=== PATIENT | male | born 1935 | race Caucasian/White ===

== ENCOUNTER → 2018-08-17 | Day surgery (SDC) | payer MEDICARE, OTHER ==
[2018-08-15 11:44] LABS: BASOPHILS # (AUTO) 0.1 (0.0-0.1); EOSINOPHILS # (AUTO) 0.1 (0.0-0.4); EOSINOPHILS % 2.3 % (0.0-6.0); HEMATOCRIT 35.8 % (38.2-49.6); HEMOGLOBIN 12.5 g/dL (14.0-18.0); LYMPHOCYTES # (AUTO) 1.3 (1.0-3.2); LYMPHOCYTES % 24.3 % (18.0-39.1); MEAN CORPUSCULAR HEMOGLOBIN 30.7 pg (28-32); MEAN CORPUSCULAR HGB CONC 34.9 g/dL (31-35); MONOCYTES # (AUTO) 0.6 (0.2-0.8); MONOCYTES % 11.8 % (4.4-11.3); NEUTROPHILS # (AUTO) 3.1 (2.1-6.9); NEUTROPHILS % 60.4 % (38.7-80.0); PLATELET COUNT 186 x10e3/uL (140-360); RED BLOOD COUNT 4.07 x10e6/uL (4.3-5.7); RED CELL DISTRIBUTION WIDTH 11.7 % (11.7-14.4)
[2018-08-15 12:14] LABS: ANION GAP 14.9 mmol/L (8-16); BLOOD UREA NITROGEN 18 mg/dL (7-26); BUN/CREATININE RATIO 19 (6-25); CALCIUM 9.2 mg/dL (8.4-10.2); CARBON DIOXIDE 25 mmol/L (22-29); CHLORIDE 104 mmol/L (98-107); CREATININE, SERUM 0.96 mg/dL (0.72-1.25); EST GLOMERULAR FILTRATION RATE > 60 ML/MIN (60-); GLUCOSE 105 mg/dL (74-118); POTASSIUM 3.9 mmol/L (3.5-5.1); SODIUM 140 mmol/L (136-145)
--- NOTE | 2018-08-16 09:38 | Diagnostic Imaging Report ---
EXAMINATION: PA and lateral views of the chest. COMPARISON: None CLINICAL HISTORY: Preadmission, prostate surgery DISCUSSION: Lines/tubes: None. Lungs: The lungs are well inflated and clear. No pneumonia or pulmonary edema. Pleura: No pleural effusion or pneumothorax. Heart and mediastinum: The cardiomediastinal silhouette is normal. Bones and soft tissues: No acute bony abnormalities. IMPRESSION: No acute cardiopulmonary abnormalities. Signed by: Dr. Johann Robles M.D. on 08/16/2018 9:34 AM
[~2018-08-17] MED LIST: ALFUZOSIN HCL10 MG PO; CARBAMAZEPINE200 MG PO; CEFTRIAXONE SOD 1 GM VIAL ONE; DEXAMETHASONE SOD PHOS INJ 4 MG/ML VIAL ONE; GENTAMICIN 80MG/NS 100 ML 200 ML IV ONE; HYDROCHLOROTHIA25 MG PO; IOPAMIDOL 610MG/1ML 300 MG/ML VIAL IV ONE; LIDOCAINE HCL 2% LOCAL INJ 5 ML SDV VIAL INJ ONE; LOSARTAN POTAS100 MG PO; PROPOFOL IV EMULSION 10 MG/ML 20 ML VIAL ONE; SEVOFLURANE INHAL SOLN 250 ML PEN BTL ONE; SIMVASTATIN20 MG PO
[2018-08-17 12:00] VITALS: BP 146/86
--- OUTSIDE RECORDS SUMMARY | 2018-08-29 10:25 | XMS REPORT ---
Author Author [facility] Address Unknown Phone Unavailable Care Team Providers Care Circuit Tester Name Role Phone MO RIOS Unavailable Unavailable Problems This patient has no known problems. Allergies, Adverse Reactions, Alerts This patient has no known allergies or adverse reactions. Medications This patient has no known medications. Results Test Description Test Time Test Comments Text Results Atomic Results Result Comments CHEST 2 VIEWS 2018-08-16 09:34:00 [place] [address] Patient Name: ARNOLDO BROOKE MR #: [id number] : 1935 Age/Sex: 83/M Req #: [id number] Adm Physician: Ordered by: MO RIOS MD Report #: [id number] Location: OR Room/Bed: Procedure: [id number] DX/CHEST 2 VIEWS Exam Date: 08/15/18 Exam Time: 1115 REPORT STATUS: Signed EXAMINATION: PA and lateral views of the chest. COMPARISON: None CLINICAL HISTORY: Preadmission, prostate surgery DISCUSSION: Lines/tubes: None. Lungs: The lungs are well inflated and clear. No pneumonia or pulmonary edema. Pleura: No pleural effusion or pneumothorax. Heart and mediastinum: The cardiomediastinal silhouette is normal. Bones and soft tissues: No acute bony abnormalities. IMPRESSION: No acute cardiopulmonary abnormalities. Signed by: Dr. Puneet Raymundo M.D. on 08/16/2018 9:34 AM Dictated By: PUNEET RAYMUNDO MD 3 Transcribed By: MOUNIKA on 08/16/18933 COPY TO: MO RIOS MD
--- NOTE | 2018-09-26 02:00 | Operative Report ---
DATE OF PROCEDURE: August 17, 2018 PREOPERATIVE DIAGNOSES: 1. Obstructive benign prostatic hypertrophy. 2. Incomplete bladder emptying. POSTOPERATIVE DIAGNOSES: 1. Obstructive benign prostatic hypertrophy. 2. Incomplete bladder emptying. OPERATIONS PERFORMED: 1. Cystourethroscopy with bilateral ureteral catheterization and retrograde ureteropyelography (separate procedure performed for the incomplete bladder emptying). 2. Interpretation of retrograde ureteropyelography. 3. Cystourethroscopy with implantation of 4 UroLift implants. ANESTHESIA: General. COMPLICATIONS: None. CLINICAL SUMMARY: Michoacano Meneses is an 83-year-old man with the above preoperative diagnoses. He is brought for the above procedures. The patient has had a previous negative prostate biopsy and he is brought for hopes of improving his urinary force of stream and lower tract symptomatology. He is aware of the risks of bleeding, infection, injury to adjacent structures, need for additional procedures, and elected to proceed. OPERATIVE PROCEDURE IN DETAIL: Informed consent was verified. Michoacano Meneses was properly identified, taken to the operating room, and placed on the cystoscopy table in supine position. Anesthesia was uneventfully begun. The patient was then carefully and gently repositioned in dorsal lithotomy position with all pressure points well padded. His genitalia were prepared and draped in usual sterile fashion. The 22.5-Scottish cystoscope sheath with the visual obturator in place was atraumatically inserted into patient's urethra. It was guided down the unremarkable urethra, through the normal sphincteric region, through the prostate bed, which was significant for mostly bipolar prostatic hypertrophy with an elevated median bar, but no median lobe. Panendoscopy of the urinary bladder revealed mild trabeculations, but no tumors, no stones, and no diverticula. Normally positioned and configured ureteral orifices were identified. An 8-Scottish catheter was used to cannulate each ureter, and retrograde ureteral pyelograms were performed. Interpretation of retrograde ureteropyelography: Contrast was instilled in retrograde fashion bilaterally. There were no tumors, no stones, and no diverticula. Unobstructed drainage was observed bilaterally fluoroscopically. There appeared to be medial deviation of the ureters midportion. This bladder was drained. The cystoscope was withdrawn. A 20-Scottish cystoscope sheath with the visual obturator in place was atraumatically inserted into the patient's urethra. It was guided down the unremarkable urethra and back into the patient's bladder. We implanted 4 UroLift implants, 2 were placed anterolaterally on either side 1.5 cm distal to the bladder neck and 2 were placed on either side anterolaterally at the level of the verumontanum. This resulted in a continuous anterior channel, which was unobstructed. The bladder was drained. The cystoscope was withdrawn. Digital rectal examination revealed a 40 g prostate, which was indurated at the right mid. The patient was then uneventfully reversed from anesthesia and taken to recovery room in stable condition. Explicit post instructions were given. Will follow the patient up in the office, at which point in time will perform uroflowmetry and bladder ultrasonography. Job#: [id number] cc:ZOEY SUBRAMANIAN MD
== END | disposition home or self-care (01) ==
LOC: OR 05:02
PROVIDERS: ATTEND Urology
DX: N40.1 Benign prostatic hyperplasia with lower urinary tract symptoms (principal); N13.8 Other obstructive and reflux uropathy; R39.11 Hesitancy of micturition; R39.12 Poor urinary stream; N32.89 Other specified disorders of bladder; N40.3 Nodular prostate with lower urinary tract symptoms; R35.1 Nocturia; R35.0 Frequency of micturition; R39.14 Feeling of incomplete bladder emptying; N43.3 Hydrocele, unspecified; K42.9 Umbilical hernia without obstruction or gangrene; R97.20 Elevated prostate specific antigen [PSA]; E66.01 Morbid (severe) obesity due to excess calories; E78.00 Pure hypercholesterolemia, unspecified; G50.0 Trigeminal neuralgia; I10 Essential (primary) hypertension; R00.1 Bradycardia, unspecified; E78.5 Hyperlipidemia, unspecified; Z01.810 Encounter for preprocedural cardiovascular examination; Z01.812 Encounter for preprocedural laboratory examination; Z01.818 Encounter for other preprocedural examination; Z86.11 Personal history of tuberculosis
CPT/HCPCS: 52005; C9740; 36415; 71046; 74420; 80048; 85025; 93005; J0696; J1100; J1580; J2001; L8699

== ENCOUNTER 2023-02-17 06:26 | Observation (INO) | payer MEDICARE, OTHER ==
[2023-02-10 12:06] LABS: BASOPHILS # (AUTO) 0.1 (0.0-0.1); BASOPHILS % 0.9 % (0.0-1.0); EOSINOPHILS # (AUTO) 0.2 (0.0-0.4); EOSINOPHILS % 2.2 % (0.0-6.0); HEMATOCRIT 37.2 % (38.2-49.6); LYMPHOCYTES # (AUTO) 1.2 (1.0-3.2); MEAN CORPUSCULAR HEMOGLOBIN 29.6 pg (28-32); MEAN CORPUSCULAR HGB CONC 32.3 g/dL (31-35); MEAN CORPUSCULAR VOLUME 91.9 fL (81-99); MONOCYTES # (AUTO) 0.6 (0.2-0.8); NEUTROPHILS # (AUTO) 4.9 (2.1-6.9); NEUTROPHILS % 70.6 % (38.7-80.0); PLATELET COUNT 264 x10e3/uL (140-360); RED BLOOD COUNT 4.05 x10e6/uL (4.3-5.7); RED CELL DISTRIBUTION WIDTH 12.7 % (11.7-14.4)
[2023-02-10 12:19] LABS: INR 0.91; PROTHROMBIN TIME 12.8 seconds (11.9-14.5)
[2023-02-10 12:20] LABS: PARTIAL THROMBOPLASTIN TIME 28.1 seconds (23.8-35.5)
[2023-02-10 12:27] LABS: ALBUMIN 3.7 g/dL (3.5-5.0); ALBUMIN/GLOBULIN RATIO 1.2 (0.8-2.0); ANION GAP 16.8 mmol/L (8-16); CREATININE, SERUM 0.86 mg/dL (0.72-1.25); POTASSIUM 3.8 mmol/L (3.5-5.1)
[~2023-02-17] VITALS: Ht 175.3 cm; Wt 90.7 kg
[~2023-02-17 06:26] MED LIST changes: -CEFTRIAXONE SOD 1 GM VIAL ONE; -DEXAMETHASONE SOD PHOS INJ 4 MG/ML VIAL ONE; +DIOVAN160 MG PO; -GENTAMICIN 80MG/NS 100 ML 200 ML IV ONE; -IOPAMIDOL 610MG/1ML 300 MG/ML VIAL IV ONE; -LIDOCAINE HCL 2% LOCAL INJ 5 ML SDV VIAL INJ ONE; +PRESERVISION A1 EAC3 PO; -PROPOFOL IV EMULSION 10 MG/ML 20 ML VIAL ONE; -SEVOFLURANE INHAL SOLN 250 ML PEN BTL ONE
[2023-02-17] MEDS ORDERED: DEXTROSE 5%/0.45% SOD CHL 1,000 ML IV ONE (06:33)
[2023-02-17] MEDS ORDERED: CEFAZOLIN SODIUM 2 GM ONE (06:33)
[2023-02-17] MEDS ORDERED: AUGMENTIN 500-1 EACH PO (07:14)
[2023-02-17] MEDS ORDERED: ACETAMINOPHEN 1000 MG/100 ML 100 ML IV ONE (09:11)
[2023-02-17] MEDS ORDERED: SUGAMMADEX SODIUM 200 MG/2 ML VIAL IV ONE (09:11)
[2023-02-17] MEDS ORDERED: IOPAMIDOL 610MG/1ML 300 MG/ML VIAL IV ONE (09:12)
[2023-02-17] MEDS ORDERED: HYDROCODONE/APAP 5MG-325MG TAB PO PRN (11:15)
[2023-02-17] MEDS ORDERED: LACTATED RINGER'S 1,000 ML INJ ONE (11:15)
[2023-02-17 11:50] VITALS: BP 117/60
[2023-02-17] MEDS ORDERED: FENTANYL CITRATE/PF 100MCG/2 ML INJ ONE (12:16)
[2023-02-17] MEDS ORDERED: NEOSTIGMINE 1 MG/ML 10ML VIAL ONE (12:47)
[2023-02-17] MEDS ORDERED: POVIDONE IODINE 0.05% 0.05 % ML PO ONE (12:47)
[2023-02-17] MEDS ORDERED: ONDANSETRON HCL INJ 2MG/ML 2ML 2 MG/ML VIAL ONE (12:47)
[2023-02-17] MEDS ORDERED: GLYCOPYRROLATE INJ 0.2 MG/ML VIAL ONE (12:47)
[2023-02-17] MEDS ORDERED: PROPOFOL IV EMULSION 10 MG/ML 20 ML VIAL ONE (12:47)
[2023-02-17] MEDS ORDERED: LIDOCAINE HCL 2% LOCAL INJ 5 ML SDV VIAL INJ ONE (12:47)
[2023-02-17] MEDS ORDERED: DEXAMETHASONE SOD PHOS INJ 4 MG/ML SDV ONE (12:47)
[2023-02-17] MEDS ORDERED: EPHEDRINE SULFATE INJ 50 MG/ML VIAL ONE (12:47)
[2023-02-17] MEDS ORDERED: ROCURONIUM BROMIDE 10 MG/ML 5ML VIAL IV ONE (12:47)
[2023-02-17] MEDS ORDERED: SEVOFLURANE INHAL SOLN 250 ML PEN BTL ONE (12:47)
[2023-02-17 13:26] VITALS: BP 148/68
[2023-02-17 13:32] VITALS: BP 148/68
[2023-02-17 13:34] VITALS: BP 148/68
[2023-02-17 15:56] VITALS: BP 148/60
[2023-02-17] MEDS: AMOXICILLIN/CLAVULANATE K 500 MG TAB PO SCH (18:35)
[2023-02-17 20:00] VITALS: BP 154/70
[2023-02-17] MEDS ORDERED: SIMVASTATIN 20 MG TAB PO SCH (21:00)
[2023-02-18] VITALS: BP 142/97
[2023-02-18 04:00] VITALS: BP 144/59
[2023-02-18 08:26] VITALS: BP 165/64
[2023-02-18] MEDS: AMOXICILLIN/CLAVULANATE K 500 MG TAB PO SCH (08:43)
[2023-02-18] MEDS ORDERED: SOLIFENACIN SUCCINATE 5 MG TAB PO SCH (09:00)
[2023-02-18] MEDS ORDERED: HYDROCHLOROTHIAZIDE 25 MG TAB PO SCH (09:00)
[2023-02-18] MEDS ORDERED: VALSARTAN 160 MG TAB PO SCH (09:00)
== END 2023-02-18 09:40 | disposition home or self-care (01) ==
LOC: OR 06:26 → PACU V 11:08 → MED/SURG3 13:09
PROVIDERS: ADMIT Urology; ATTEND Urology
DX: N40.0 Benign prostatic hyperplasia without lower urinary tract symptoms (principal); R31.0 Gross hematuria; N42.0 Calculus of prostate; Z46.6 Encounter for fitting and adjustment of urinary device; N32.89 Other specified disorders of bladder; A49.8 Other bacterial infections of unspecified site; Z87.440 Personal history of urinary (tract) infections; R35.1 Nocturia; R39.14 Feeling of incomplete bladder emptying; N39.43 Post-void dribbling; R39.12 Poor urinary stream; I10 Essential (primary) hypertension; E78.2 Mixed hyperlipidemia; Q82.0 Hereditary lymphedema; E66.9 Obesity, unspecified; I20.8 Other forms of angina pectoris; H35.30 Unspecified macular degeneration; H91.8X1 Other specified hearing loss, right ear; Z20.822 Contact with and (suspected) exposure to COVID-19; Z01.810 Encounter for preprocedural cardiovascular examination; Z01.812 Encounter for preprocedural laboratory examination; Z01.818 Encounter for other preprocedural examination; Z79.899 Other long term (current) drug therapy; Z68.29 Body mass index [BMI] 29.0-29.9, adult
CPT/HCPCS: 0223U; 36415; 52005; 52601; 71046; 74420; 80053; 85025; 85610; 85730; 87086; 87186; 88305; 93005; C1758; G0378 ×2; J0131; J1100; J2001; J2405; J2704; J2710; J3010; J7121; Q9967; 88304

== ENCOUNTER 2023-04-06 19:07 | Emergency (ER) | payer MEDICARE ==
[~2023-04-06] VITALS: Ht 175.3 cm; Wt 90.7 kg
[~2023-04-06 19:07] MED LIST changes: +AUGMENTIN 500-1 EACH PO
[2023-04-06 19:35] VITALS: O2SAT 97
[2023-04-06] MEDS ORDERED: FLOMAX0.4 MG PO (19:53)
== END 2023-04-06 20:48 | disposition home or self-care (01) ==
LOC: FSED 19:16
DX: R39.11 Hesitancy of micturition (principal); N39.0 Urinary tract infection, site not specified; N40.1 Benign prostatic hyperplasia with lower urinary tract symptoms; N45.3 Epididymo-orchitis; I10 Essential (primary) hypertension; E78.5 Hyperlipidemia, unspecified
CPT/HCPCS: 99282

== ENCOUNTER 2023-04-10 12:05 | Emergency (ER) | payer MEDICARE ==
[~2023-04-10] VITALS: Ht 175.3 cm; Wt 88.2 kg
[~2023-04-10 12:05] MED LIST changes: +FLOMAX0.4 MG PO
[2023-04-10 13:00] VITALS: O2SAT 98
== END 2023-04-10 13:00 | disposition home or self-care (01) ==
LOC: FSED 12:21
DX: R33.9 Retention of urine, unspecified (principal); R30.0 Dysuria; I10 Essential (primary) hypertension; E78.5 Hyperlipidemia, unspecified; H35.30 Unspecified macular degeneration
CPT/HCPCS: 51700; 81003; 99283